=== PATIENT | male | born 1975 | race African-American/Black ===

== ENCOUNTER 2017-06-18 14:29 | Observation (INO) ==
[2017-06-18] MEDS ORDERED: ASPIRIN 81 MG CHEWABLE TABLET PO ONE (14:32)
[2017-06-18] MEDS ORDERED: SALINE FLUSH 10ml SYRINGE IVF PRN (14:32)
--- NOTE | 2017-06-18 14:34 | Emergency Department Report ---
Chest Pain HPI - General Stated Complaint: cp Time Seen by Provider: 06/18/17 14:33 Source: patient Mode of arrival: ambulatory Limitations: no limitations - History of Present Illness HPI narrative: Patient is a 41-year-old male presents emergency room for evaluation of chest pain. Patient last night developed several episodes of "shocklike" feeling in his chest, this morning patient started having chest pressure at rest. Patient' s had mild nausea no vomiting no fevers no chills no diaphoresis. Patient decided today to present to the ER for evaluation MD complaint: chest pain Occurred At: home Onset (ago): hour(s) Duration: constant Onset: during rest Pain location: substernal, left chest Severity: moderate Severity scale (1-10): 7 Quality: tightness, heaviness Relieving factors: nothing Aspirin Today: 81 mg x 4, provided by ED Nitro Today: 0.4 mg x 3, provided by ED, mild relief - Related Data Home Medications Medication Instructions Recorded Confirmed Amlodipine [Norvasc] 10 mg PO DAILY 06/18/17 06/18/17 Atorvastatin Calcium 20 mg PO HS 06/18/17 06/18/17 Benzalkonium Chloride [Revitaderm] 1 applic TOP PRN 06/18/17 06/18/17 Canagliflozin [Invokana] 300 mg PO DAILY 06/18/17 06/18/17 Cyclobenzaprine [Flexeril] 5 mg PO PRN 06/18/17 06/18/17 Insulin Aspart [Novolog Flexpen] 10 - 20 unit SQ TIDWM 06/18/17 06/18/17 Insulin Detemir [Levemir Flextouch] 40 unit SQ BID 06/18/17 06/18/17 LORazepam [Ativan] 0.5 mg PO BID 06/18/17 06/18/17 Venlafaxine HCl [Venlafaxine HCl 75 mg PO DAILY 06/18/17 06/18/17 ER] Venlafaxine HCl [Venlafaxine HCl 150 mg PO DAILY 06/18/17 06/18/17 ER] Previous Rx's Medication Instructions Recorded Acetaminophen [Tylenol] 500 mg PO Q4H tablet 06/19/17 Aspirin Chewable [ASA] 81 mg PO DAILY #30 tab.chew 06/19/17 Nitroglycerin 0.4 mg SL Q5MIN3 #30 tab.subl 06/19/17 Allergies Allergy/AdvReac Type Severity Reaction Status Date / Time codeine Allergy Unknown Rash Verified 06/18/17 14:44 Review of Systems Constitutional: Denies: fever, chills ENT: Denies: ear pain, throat pain Cardiovascular: Reports: chest pain. Denies: palpitations, dyspnea on exertion Respiratory: Denies: cough, dyspnea, wheezes Gastrointestinal: Denies: abdominal pain, nausea, vomiting Genitourinary: Denies: dysuria, frequency Neurological: Denies: headache, weakness, numbness Psychiatric: Denies: anxiety, depression Endocrine: Denies: fatigue, heat or cold intolerance PFSH Patient Stated Medical History Migraine Yes Transient Ischemic Attacks ( Yes: x3 TIA) Hypertension Yes Myocardial Infarction Yes: 2-3 Bronchitis Yes Diabetes Mellitus Type 2 Yes Gastroesophageal Reflux Yes Disease Other GI Yes: GI INFECTIONS Hx Kidney Stones Yes Other Musculoskeletal Yes: FEMUR R X2,R TIBIA, LEFT TIBIA, WRISTS Depression Yes - Social History Smoking status: Never smoker Substance use type: does not use Physical Exam - Eye Eye exam: Present: normal appearance - ENT ENT exam: Present: normal oropharynx, mucous membranes moist - Neck Neck exam: Present: full ROM, trachea midline - Chest Chest inspection: Present: symmetric chest wall rise. Absent: tenderness, rash - Respiratory Respiratory exam: Present: normal lung sounds bilaterally. Absent: respiratory distress, wheezes, stridor - Cardiovascular Cardiovascular exam: Present: regular rate, normal rhythm, normal heart sounds - Abdominal Exam Abdominal exam: Present: soft, normal bowel sounds. Absent: distention, tenderness - Skin Skin exam: Present: warm, dry - Neurological Exam Neurological exam: Present: alert, oriented X3 - Psychiatric Psychiatric exam: Present: normal affect, normal mood Course Vital Signs Temperature 99.0 F 06/18/17 14:30 Pulse Rate 102 H 06/18/17 14:30 Respiratory Rate 20 06/18/17 14:30 Blood Pressure 137/97 H 06/18/17 14:30 Pulse Oximetry 97 06/18/17 14:30 Temperature 98.4 F 06/19/17 11:38 Pulse Rate 90 06/19/17 11:38 Respiratory Rate 16 06/19/17 11:38 Blood Pressure 116/70 06/19/17 11:38 Pulse Oximetry 96 06/19/17 11:38 Chest Pain - Differential Diagnosis Likely: fracture of rib, pneumothorax, stable angina, unstable angina pectoris, atypical chest pain, st elevation myocardial infarction, costochondritis, chest pain, biliary colic - Medical Records Data Attestation: I reviewed the patient's medical records. - Lab Data Attestation: I reviewed the patient's lab results. Result diagrams: 06/18/17 14:43 06/18/17 14:43 Lab Results 06/18/17 06/18/17 06/18/17 Range/Units 14:43 14:43 14:43 WBC 10.7 (4.5-11.0) T/MM3 RBC 5.56 (4.50-5.90) M/MM3 Hgb 16.4 (13.5-17.5) GM/DL Hct 49.3 (41-53) % MCV 88.7 (80-100) UM3 MCH 29.5 (26-34) UUG MCHC 33.3 (31-37) GM/DL RDW Std Deviation 43.0 (36.9-50.2) FL Plt Count 201 (130-400) T/MM3 MPV 9.6 (9.4-12.4) UM3 Immature Gran % (Auto) 0.2 (0.0-0.5) % Neut % (Auto) 55.4 (33-66) % Lymph % (Auto) 38.2 (23-45) % [place] % (Auto) 4.3 (0-9.0) % Eos % (Auto) 1.7 (0-4) % Baso % (Auto) 0.2 (0-2) % Neut # 6.0 (1.8-7.7) T/MM3 Lymph # 4.1 (1-4.8) T/MM3 [place] # 0.5 (0-0.8) T/MM3 Eos # 0.2 (0-0.5) T/MM3 Baso # 0.0 (0-0.2) T/MM3 Abs Immat Gran (auto) 0.02 (0.00-0.03) T/MM3 D-Dimer < 150 (0-230) NG/ML Turbidity < 20 (0-20) Sodium 144 (134-144) MEQ/L Potassium 4.4 (3.6-5) MEQ/L Chloride 106 (98-107) MEQ/L Carbon Dioxide 26 (22-30) MEQ/L Anion Gap 12 (5-15) MEQ/L BUN 10.0 (9-20) MG/DL Creatinine 0.6 L (0.8-1.5) MG/DL GFR Calculation 148 BUN/Creatinine Ratio 17 (6-26) RATIO Glucose 136 H (75-110) MG/DL Calculated Osmolality 278 (261-280) MOSM/KG Calcium 9.9 (8.4-10.2) MG/DL Magnesium 2.1 (1.6-2.3) MG/DL Total Bilirubin 0.60 (0.20-1.30) MG/DL Icterus Index < 2 (0-7) AST 21 (17-59) U/L ALT 34 (21-72) U/L Alkaline Phosphatase 66 (38-126) U/L Troponin I < 0.012 (0-0.12) ng/ml Total Protein 8.1 (6.3-8.2) G/DL Albumin 4.6 (3.5-5.0) G/DL Globulin 3.5 (2.4-3.6) G/DL Albumin/Globulin Ratio 1.3 (1.1-2.2) RATIO TSH 0.74 (0.47-4.68) MIU/L Specimen Hemolysis < 15 (0-25) - Radiology Data Attestation: I reviewed the patient's radiology results. No acute cardiopulmonary findings - EKG Data EKG #1 EKG attestation: Yes: I reviewed and interpreted this EKG. Rate: tachycardia Rhythm: NSR [place]/QRS: normal Interpretation: no acute changes Disposition Clinical Impression: Chest pain Disposition: 02 To [facility] Condition: Stable Time of Disposition: 15:51 - Seen By: physician
--- OUTSIDE RECORDS SUMMARY | 2017-06-18 14:39 | External Medical Summary | Clinical Summary ---
:1975 Author Organization [facility] Address [address] [place] [address] Phone Care Team Providers Name Role Phone Unavailable Primary Care Provider Unavailable Source Comments Some departments are not documenting in the electronic medical record. If you do not see the information that you expected, contact Release of Information in the Health Information Management department at [phone] for further assistance in locating additional records.[facility] Allergies Active Allergy Reactions Severity Noted Date Comments Codeine CHEST TIGHTNESS, RASH 06/28/2014 Current Medications Prescription Sig. Disp. Refills Start Date End Date Status canagliflozin (INVOKANA) Take 300 mg by Active 300 mg tablet mouth daily with breakfast. insulin glargine (LANTUS Inject 38 Units Active SOLOSTAR) 100 unit/mL (3 into area(s) as mL) injection PEN directed at bedtime daily. insulin aspart (NOVOLOG) Inject 15 Units Active 100 unit/mL injection into area(s) as directed three times daily with meals. If over 150 gabapentin (NEURONTIN) Take 300 mg by Active 300 mg capsule mouth daily. nebivolol (BYSTOLIC) 5 Take 5 mg by mouth Active mg tablet daily. amphetamine-dextroamphet Take 30 mg by Active amine(+) (ADDERALL) 30 mouth twice daily mg tablet lovastatin(+) (MEVACOR) Take 10 mg by Active 10 mg tablet mouth at bedtime daily. potassium chloride(+) Take 10 mEq by Active (MICRO-K) 10 mEq capsule mouth daily. colesevelam(+) (WELCHOL) Take 3 Tabs by 180 Tab 3 10/25/2014 Active 625 mg tablet mouth twice daily with meals. Active Problems Problem Noted Date Diarrhea 07/19/2014 Social History Tobacco Use Types Packs/Day Years Used Date Current Every Day Smoker 1 Alcohol Use Drinks/Week oz/Week Comments Yes rarely Sex Assigned at Date Recorded Not on file Last Filed Vital Signs Vital Sign Reading Time Taken Blood Pressure 134/88 10/25/2014 2:39 PM [employer] Pulse 99 10/25/2014 2:39 PM [employer] Temperature 37.1 C (98.7 F) 10/25/2014 2:39 PM [employer] Respiratory Rate 18 10/25/2014 2:39 PM [employer] Oxygen Saturation - - Inhaled Oxygen Concentration - - Weight 122.5 kg (270 lb) 10/25/2014 2:39 PM [employer] Height 180.3 cm (5' 11") 10/25/2014 2:39 PM [employer] Body Mass Index 37.66 10/25/2014 2:39 PM [employer] SAL[employer] Plan of Treatment Health Maintenance Due Date Last Done Comments PHYSICAL (COMPREHENSIVE) EXAM 1982 PERTUSSIS VACCINE 1986 TETANUS VACCINE 1992 INFLUENZA VACCINE 06/20/2017
[2017-06-18] MEDS: NITROGLYCERIN 0.4 MG SUBLINGUAL TABLET SL PRN ×3 (14:42→15:04)
--- NOTE | 2017-06-18 14:54 | XRay Report ---
Indication: chest pain shortness of air PROCEDURE: XR chest 1V: Encounter: Initial Comparison: None FINDINGS: The lungs are clear. There is no abnormal airspace opacity, pleural effusion or pneumothorax identified. The heart size, pulmonary vasculature and mediastinum are within normal limits. No significant skeletal abnormality is seen. IMPRESSION: No acute cardiopulmonary abnormality. .
[2017-06-18] MEDS ORDERED: MORPHINE SULFATE 2 MG SYRINGE IVP ONE ×2 (15:13→15:51)
[2017-06-18 16:28] VITALS: BMI 38.7
[2017-06-18] MEDS ORDERED: ONDANSETRON 4 MG/2 ML INJECTION IVP PRN (16:58)
[2017-06-18] MEDS ORDERED: MORPHINE SULFATE 4 MG SYRINGE IVP PRN (16:58)
[2017-06-18] MEDS ORDERED: DiphenhydrAMINE 25 MG CAPSULE PO PRN (16:59)
--- NOTE | 2017-06-18 17:12 | History & Physical Report ---
<Loreta Davis V - Last Filed: 06/18/17 17:27> History of Present Illness Date: 06/18/17 Chief complaint: Chest pain HPI: Sloan is a pleasant 41 year old female who has been under the outpatient care of the wound care center for debridement of a right 2nd toe plantar ulcer for the past 1 month. Today he was there having a final evaluation on his wound and he told staff he had been having chest pain all day. At that time he was brought to the emergency room for acute evaluation. Further evaluation including laboratory studies, EKG and chest x-ray were obtained. EKG revealed sinus tachycardia, rate 103. CBC and CMP were found to be unremarkable. Initial troponin was negative. TSH is 0.74, and d-dimer negative. Chest x-ray not reveal any acute cardiopulmonary findings. His chest pain initially was a 6 out of 10 and decreased down to a 2 out of 10 following nitroglycerin and morphine. Patient does have existing comorbidities including diabetes, hypertension, every day smoker. The hospitalist services were contacted and accepted patient for outpatient admission for further observation and evaluation. 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 He reports that he does take Adderall for his ADHD, however, only utilizes it on days of work. He reports he has a long-standing history of chronic insomnia and night terrors. He has had cardiac evaluation in the past. He reports that in the summer 2015. He was hospitalized at [facility] and underwent a stress test and echocardiogram at that time. He was told that it was "okay". No interventions were performed. Chest pain. Today is sharp in nature to the left anterior chest and substernal. It appears to be worse with palpation and is reproducible on examination. Pain was accompanied with mild nausea that has now resolved. Patient has a known history of type II diabetes in his under the outpatient care of the wound Center for a right 2nd toe wound ulcer that has now healed. She reports that his last hemoglobin A1c was 2-3 months ago. At that time it was just over 8. He reports that he is not good about taking mealtime insulin as his food intake during the day varies depending on his dizziness. He does routinely take Levemir 40 units twice a day as well as Invokana for glycemic control. Review of Systems Comprehensive ROS: completed and no additional positive findings except those as stated - Cardiovascular Cardiovascular: Present: chest pain [facility] Patient Stated Medical History Type II diabetes Recent right 2nd toe ulcer- Now resolved Hypertension GERD Depression/anxiety ADHD History of multiple musculoskeletal fractures including right femur, right tib- fib and wrists. Reported history of NE without intervention History of TIA History of C. difficile Chronic tobacco dependence Surgical History: Appendectomy. Cholecystectomy. Right femur repair. 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 Medications Home Medications Medication Instructions Recorded Confirmed Type Amlodipine [Norvasc] 10 mg PO DAILY 06/18/17 06/18/17 History Atorvastatin Calcium [Atorvastatin 20 mg PO HS 06/18/17 06/18/17 History Calcium] Benzalkonium Chloride [Revitaderm] 1 applic TOP PRN 06/18/17 06/18/17 History Canagliflozin [Invokana] 300 mg PO DAILY 06/18/17 06/18/17 History Cyclobenzaprine [Flexeril] 5 mg PO PRN 06/18/17 06/18/17 History Dextroamphetamine/Amphetamine 30 mg PO DAILY 06/18/17 06/18/17 History [Adderall Xr 30 mg Capsule] Insulin Aspart [Novolog Flexpen] 10 - 20 unit SQ TIDWM 06/18/17 06/18/17 History Insulin Detemir [Levemir Flextouch] 40 unit SQ BID 06/18/17 06/18/17 History LORazepam [Ativan] 0.5 mg PO BID 06/18/17 06/18/17 History Venlafaxine HCl [Venlafaxine HCl 75 mg PO DAILY 06/18/17 06/18/17 History ER] Venlafaxine HCl [Venlafaxine HCl 150 mg PO DAILY 06/18/17 06/18/17 History ER] Allergies Allergy/AdvReac Type Severity Reaction Status Date / Time codeine Allergy Unknown Rash Verified 06/18/17 14:44 Exam Vital Signs: Temperature 98.9 F 06/18/17 16:37 Pulse Rate 89 06/18/17 16:37 Respiratory Rate 16 06/18/17 16:37 Blood Pressure 123/77 06/18/17 16:37 Pulse Oximetry 96 06/18/17 16:37 Telemetry Rhythm: Sinus Rhythm Height/Weight/BMI: Height 1.8 m Weight 126 kg Body Mass Index 38.7 - Constitutional Present: no acute distress, well nourished, well developed - Routine HEENT Exam Head: Present: normocephalic Eye: Present: EOMI, PERRL ENT: Present: mucous membranes moist, dentition normal - Routine Neck Exam Present: full ROM - Routine Respiratory Exam Present: CTA bilaterally. Absent: wheezes - Routine Cardiovascular Exam Present: RRR, S1, S2, no murmur. Absent: murmur - Routine Abdominal Exam Present: soft, normoactive bowel sounds, non distended. Absent: tenderness - Routine Extremities Exam Present: full ROM, normal capillary refill - Routine Skin Exam Present: intact, dry, warm Comments: Mild scaling of skin at [place] aspect crease of the right 2nd toe. No evidence of acute infection, erythema or drainage. - Routine Neurological Exam Present: alert, oriented X3, CN II-XII intact - Routine Psychiatric Exam Present: normal affect Results - Labs CBC & Chem 7: 06/18/17 14:43 06/18/17 14:43 Assessment and Plan (1) Chest pain, rule out acute myocardial infarction Current visit: Yes Status: Acute DVT Prophylaxis: SCD's Resuscitation Status: Full Code Assessment and Plan: Impression Chest pain rule out NE Type II diabetes Hypertension GERD Reported history of NE Anxiety ADHD Plan Admit patient to outpatient observation under care of Dr. Diamond for chest pain rule out NE. Will monitor patient on cardiac telemetry, obtain serial troponin 3 to rule out ischemia. Consult placed to Dr. Mead for further cardiac evaluation and recommendations. HEART score= 3 points indicating low risk of adverse cardiac event Have asked nursing staff to obtain old records from [facility]. Patient did have cardiac workup including stress test in the summer of 2015. Morphine available as needed for pain control. Will monitor Accu-Cheks and continue with home insulin, Levemir 40 units a day as well as NovoLog with meals and oral Invokana. Encourage tobacco cessation. Medications reviewed and ordered SCDs to bilateral lower extremity for DVT prophylaxis Discuss further orders and plan of care with attending, Dr. Diamond. At time of discharge medical care will return to primary care provider in [place], [place], Dr. Yulissa Reilly Sepsis Assessment - Evaluation Sepsis screening result: No Definite Risk Hospital Course Summary Disclaimer: The visit summary below is not to be considered part of the above Progress Note. Hospital Course: 06/18/17- initial admission Chest pain rule out NE Type II diabetes Hypertension GERD Reported history of NE Anxiety ADHD Plan Admit patient to outpatient observation under care of Dr. Diamond for chest pain rule out NE. Will monitor patient on cardiac telemetry, obtain serial troponin 3 to rule out ischemia. Consult placed to Dr. Mead for further cardiac evaluation and recommendations. HEART score= 3 points indicating low risk of adverse cardiac event Have asked nursing staff to obtain old records from [facility]. Patient did have cardiac workup including stress test in the summer of 2015. Morphine available as needed for pain control. Will monitor Accu-Cheks and continue with home insulin, Levemir 40 units a day as well as NovoLog with meals and oral Invokana. Encourage tobacco cessation. Medications reviewed and ordered SCDs to bilateral lower extremity for DVT prophylaxis Discuss further orders and plan of care with attending, Dr. Diamond. At time of discharge medical care will return to primary care provider in [place], [place], Dr. Yulissa Reilly <LoboCallie - Last Filed: 06/18/17 18:22> History of Present Illness Date: 06/18/17 [facility] Patient Stated Medical History Migraine Yes Transient Ischemic Attacks ( Yes: x3 TIA) Hypertension Yes Myocardial Infarction Yes: 2-3 Bronchitis Yes Diabetes Mellitus Type 2 Yes Gastroesophageal Reflux Yes Disease Other GI Yes: GI INFECTIONS Hx Kidney Stones Yes Other Musculoskeletal Yes: FEMUR R X2,R TIBIA, LEFT TIBIA, WRISTS Cellulitis Yes Clostridium Difficile Yes Depression Yes Exam Vital Signs: Temperature 98.9 F 06/18/17 16:37 Pulse Rate 84 06/18/17 17:01 Respiratory Rate 16 06/18/17 16:37 Blood Pressure 123/77 06/18/17 16:37 Pulse Oximetry 96 06/18/17 16:37 Height/Weight/BMI: Height 1.8 m Weight 126 kg Body Mass Index 38.7 Results - Labs CBC & Chem 7: 06/18/17 14:43 06/18/17 14:43 Assessment and Plan (1) Chest pain, rule out acute myocardial infarction Current visit: Yes Status: Acute Assessment and Plan: 06/18/2017-I reviewed this chart, the patient history, and the [employer]PER[employer]'s/PA's documented findings as above. We discussed and formulated the assessment and plan as above with the additions below.-Dr. Diamond Patient was seen in his room accompanied by his . He states his is his DPOA. Patient states that he had some electrical type short lasting chest pains yesterday but this morning developed more of a pressure like something sitting on his chest. When he notified his physician at the wound center, she referred him to the ER. In the ER he received nitroglycerin and morphine and now he has very minimal discomfort in his chest. The pain is substernal. He does have pain with palpation of the chest but it is not reproducing the same type of discomfort he had previously. He denies any shortness of breath. He had some mild nausea but no vomiting. He is hungry at this time and complains of a headache which he thinks is from nitroglycerin. The patient states he had a stress test a year ago in [place] which was normal. We did receive those records and it appears he was only able to walk for 1.5 minutes and attained an 81% maximal heart rate. He was limited by dyspnea and hip pain. Stress test was reportedly negative. He had carotid Dopplers in 2008 which were negative, an MRA of the neck in September 2014 that was negative, and MRI of the brain in September 2014 was negative. On exam he is alert and oriented 3 and in no acute distress. Chest is clear to auscultation. Cardiovascular reveals a regular rate and rhythm. Abdomen is soft and nontender. Extremities are free of edema. Skin is warm and dry and without rashes. Lab Reveals a normal CBC. D-dimer less than 150. Comprehensive metabolic almost entirely normal. Magnesium is 2.1. TSH is 0.74. The globe A1c is pending. Chest x-ray appears normal. EKG reveals no specific ST-T wave changes. Impression Chest pain rule out acute NE. Risk factors include diabetes, hypertension, hyperlipidemia, tobacco use, history of TIA, and hospital history of NE in the past. Family is unknown because the patient is adopted. Type 2 diabetes Hypertension Headache-likely secondary to nitroglycerin Plan Serial cardiac enzymes. Aspirin daily. Telemetry. Dr. Mead has been consulted. We'll monitor Accu-Cheks and place on a diabetic diet. Discussed plans with the patient and he is in agreement. Hospital Course Summary Disclaimer: The visit summary below is not to be considered part of the above Progress Note.
[2017-06-18] MEDS ORDERED: CYCLOBENZAPRINE 5 MG TABLET PO PRN (17:15)
[2017-06-18] MEDS ORDERED: INSULIN ASPART 100unit/ml INJECTION SQ SCH (17:30)
[2017-06-18] MEDS ORDERED: IBUPROFEN 600 MG TABLET PO PRN (17:42)
[2017-06-18] MEDS ORDERED: LORazepam 0.5 MG TABLET PO PRN (17:43)
[2017-06-18] MEDS: ACETAMINOPHEN 500 MG TABLET PO SCH ×2 (17:51→21:52)
[2017-06-18] MEDS ORDERED: INSULIN DETEMIR 100unit/ml INJECTION SQ SCH (21:00)
[2017-06-18] MEDS ORDERED: ATORVASTATIN 20 MG TABLET PO SCH (21:00)
[2017-06-18] MEDS: LORazepam 0.5 MG TABLET PO SCH (21:51)
--- NOTE | 2017-06-18 22:06 | Cardiology Consult Note ---
History of Present Illness Consult date: 06/18/17 Requesting physician: Callie Diamond Consult reason: chest pain History of present illness: pt interviewed and examined 41 yo aam admitted w L chest pressure . partially improved after 3 SL NTG from 7 to 3-4/10.initially presented to wound clinic. has been working very long hours.wants to get out of the hospital "the most expedient way" cp reproducible. feeling better . previous w/u in [facility]. last yr including an echo and a stress test. Mr. Castelan presented today at the outpatient care of the wound Center for debridement he told him that he has been having chest pain all day long so admitted to hospitalist service through the emergency room for acute evaluation and initial low workup EKG chest x-ray troponins and laboratory were unremarkable is a chest pain was rated as 7/10 and dropped to 34/10 after 3 sublingual nitros and morphine. He's been having a headache since. Was still having ongoing chest pain when I examined him was reproducible by palpation. It was uncomfortable in his back jony and bed. He has a lot of risk factors as noted below. 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 He does not exercise. Last time he mowed his lawn was 2 weeks ago with 45 minutes and this did not give him any chest pain or dyspnea. His had previous admission with a similar problem in summer 2016 [facility] where underwent stress test and an echo that were reportedly unremarkable . Denies any radiation of this chest pain has had mild nausea denies dyspnea otherwise denies any relieving or worsening factors. He is not compliant with his diabetic treatment , as his meal intake varies. During my exam he was still having very low grade ongoing chest wall tenderness. Review of Systems Comprehensive ROS: completed and no additional positive findings except those as stated Review of systems: Comparison review of system is negative except as in history of present illness he is ADHD and depression anxiety and has been taking multiple medications for that. - Cardiovascular Cardiovascular: Absent: orthopnea, edema - Respiratory Respiratory: Absent: dyspnea PFSH Patient Stated Medical History Migraine Yes Transient Ischemic Attacks ( Yes: x3 TIA) Hypertension Yes Myocardial Infarction Yes: 2-3 Bronchitis Yes Diabetes Mellitus Type 2 Yes Gastroesophageal Reflux Yes Disease Other GI Yes: GI INFECTIONS Hx Kidney Stones Yes Other Musculoskeletal Yes: FEMUR R X2,R TIBIA, LEFT TIBIA, WRISTS Cellulitis Yes Clostridium Difficile Yes Depression Yes Surgical History: Appendectomy. Cholecystectomy. Right femur repair. EGD and colonoscopy Family History Updates: Not provided - Social History Smoking status: Current every day smoker Alcohol intake frequency: a few times a week Household members: significant other Current occupational status: employed Current residence: Apartment/Private Home Medications Home Medications Medication Instructions Recorded Confirmed Type Amlodipine [Norvasc] 10 mg PO DAILY 06/18/17 06/18/17 History Atorvastatin Calcium 20 mg PO HS 06/18/17 06/18/17 History Benzalkonium Chloride [Revitaderm] 1 applic TOP PRN 06/18/17 06/18/17 History Canagliflozin [Invokana] 300 mg PO DAILY 06/18/17 06/18/17 History Cyclobenzaprine [Flexeril] 5 mg PO PRN 06/18/17 06/18/17 History Insulin Aspart [Novolog Flexpen] 10 - 20 unit SQ TIDWM 06/18/17 06/18/17 History Insulin Detemir [Levemir Flextouch] 40 unit SQ BID 06/18/17 06/18/17 History LORazepam [Ativan] 0.5 mg PO BID 06/18/17 06/18/17 History Venlafaxine HCl [Venlafaxine HCl 75 mg PO DAILY 06/18/17 06/18/17 History ER] Venlafaxine HCl [Venlafaxine HCl 150 mg PO DAILY 06/18/17 06/18/17 History ER] Allergies Allergy/AdvReac Type Severity Reaction Status Date / Time codeine Allergy Unknown Rash Verified 06/18/17 14:44 Exam Vital signs: Temperature 98.9 F 06/18/17 16:37 Pulse Rate 84 06/18/17 17:01 Respiratory Rate 16 06/18/17 16:37 Blood Pressure 123/77 06/18/17 16:37 Pulse Oximetry 96 06/18/17 16:37 - Constitutional no acute distress, obese - Routine HEENT Exam Head: Present: normocephalic, atraumatic Eye: Present: EOMI ENT: Present: mucous membranes moist - Routine Neck Exam Absent: JVD - Routine Respiratory Exam Present: CTA bilaterally - Routine Cardiovascular Exam Present: RRR, S1, S2, no murmur, S4. Absent: JVD - Routine Abdominal Exam Present: soft, normoactive bowel sounds, non distended, non tender - Routine Extremities Exam Absent: cyanosis, clubbing, edema - Routine Skin Exam Present: intact, dry, warm. Absent: cyanosis, erythema, pallor, mottling - Routine Neurological Exam Present: alert, oriented X3, CN II-XII intact, moving all extremities. Absent: motor deficit - Routine Psychiatric Exam Present: cooperative, depressed, anxious Results 06/18/17 14:43 06/18/17 14:43 Cardiac Enzymes 06/18/17 Range/Units 20:34 Troponin I < 0.012 (0-0.12) ng/ml Intake and Output 06/18/17 06/18/17 06/18/17 06:59 14:59 22:59 Other: # Voids 1 Weight 126 kg Patient Weight 06/19/17 06:59 Weight 126 kg - Imaging and Cardiology Stress echo: other ( [facility] 04/15/2016 exercise stress EKG (is no echo) exercise duration 6 minutes and 50 seconds 7 Mets target heart rate 153 which is 81% of maximum predicted double product 25,550 negative for ischemia) Echo: other (reportedly negative . A carotid Doppler report shows no obstructive disease) - EKG Interpretation EKG: sinus rhythm (no acute changes of ischemia) EKG interpretations - Dysrhythmias Sinus rhythms and dysrhythmias: sinus rhythm (no acute changes) Hospital Course Summary Disclaimer: The visit summary below is not to be considered part of the above Progress Note. Hospital Course: 06/18/17- initial admission Chest pain rule out GA Type II diabetes Hypertension GERD Reported history of GA Anxiety ADHD CP DM 2 SMOKER HTN DYSLIPIDEMIA APPEARS STABLE CONCUR W RX AND R/O GA DISCUSSING FURTHER W/U. Exercise stress nuclear scan versus heart catheter ,considering his risk factors. I explained the plan to the patient we will keep him nothing by mouth after breakfast for cardiac testing tomorrow afternoon. Going to hold his morning insulin. Obtain EKG in the morning 2 serial troponin Continue aspirin and statin Beta blockers may exacerbate his depression especially this is really not feeling well. Will await substantiating the diagnosis of his chest pain . THANK YOU 06/18/17 22:11 06/19/17 17:17 06/19/17 17:19 06/19/17 17:21 Sepsis Assessment - Evaluation Sepsis screening result: No Definite Risk
[2017-06-19] MEDS: ACETAMINOPHEN 500 MG TABLET PO SCH ×3 (02:08→10:02)
[2017-06-19 07:40] VITALS: RESP 16
[2017-06-19] MEDS ORDERED: ASPIRIN 325 MG TABLET PO ONE (08:00)
[2017-06-19] MEDS: LORazepam 0.5 MG TABLET PO SCH (08:16)
[2017-06-19] MEDS ORDERED: AMLODIPINE 10 MG TABLET PO SCH (09:00)
[2017-06-19] MEDS ORDERED: CANAGLIFLOZIN 100mg TABLET PO SCH (09:00)
[2017-06-19] MEDS ORDERED: Venlaflaxine XR 75 MG CAPSULE (24hr) PO SCH (09:00)
--- NOTE | 2017-06-19 09:47 | Progress Note ---
<Loreta Davis V - Last Filed: 06/19/17 09:43> Subjective: Sloan is seen this morning in follow-up. He is resting in bed without any chest pain currently. States that he feels mildly anxious, however, did receive his Ativan this morning. Denies nausea, dizziness or shortness of breath. Vital Signs are stable, pulse 70-80, blood pressure this morning 111/62. Objective Vital signs: Temperature 98.2 F 06/19/17 07:38 Pulse Rate 81 06/19/17 07:38 Respiratory Rate 16 06/19/17 07:38 Blood Pressure 111/62 06/19/17 07:38 Pulse Oximetry 93 06/19/17 07:38 Rhythm: Normal Sinus Rhythm Height/Weight/BMI: Height 1.8 m Weight 124 kg Body Mass Index 38.7 - Constitutional Present: no acute distress, well nourished, well developed - Routine HEENT Exam Eye: Present: EOMI, PERRL ENT: Present: mucous membranes moist, dentition normal - Routine Respiratory Exam Present: CTA bilaterally. Absent: wheezes - Routine Cardiovascular Exam Present: RRR, S1, S2. Absent: murmur - Routine Abdominal Exam Present: soft, normoactive bowel sounds, non distended. Absent: tenderness - Routine Extremities Exam Present: full ROM, normal capillary refill - Routine Back/Spine/Pelvis Exam Back/Spine: Present: full ROM - Routine Skin Exam Present: intact, dry, warm - Routine Neurological Exam Present: alert, oriented X3, CN II-XII intact - Routine Lymphatic Exam Lymphatic: Absent: adenopathy - Routine Psychiatric Exam Present: normal affect, normal thought process Results - Labs CBC & Chem 7: 06/18/17 14:43 06/18/17 14:43 Assessment and Plan (1) Chest pain, rule out acute myocardial infarction Status: Acute Assessment and Plan: Impression Chest pain rule out ND Type II diabetes Hypertension GERD Reported history of ND Anxiety ADHD Plan Telemetry reviewed in NSR. His morning. Patient denies chest pain. On examination. Appreciate Dr. Mead consultation. Awaiting to hear his recommendations for further cardiac evaluation. Continue Need to monitor Accu-Cheks. Fasting sugar this morning was 106. Hemoglobin A1c 8.0. DM meds currently on hold for possible procedure. Sepsis Assessment - Evaluation Sepsis screening result: No Definite Risk Hospital Course Summary Disclaimer: The visit summary below is not to be considered part of the above Progress Note. Hospital Course: 06/18/17- initial admission Chest pain rule out ND Type II diabetes Hypertension GERD Reported history of ND Anxiety ADHD Plan Admit patient to outpatient observation under care of Dr. Diamond for chest pain rule out ND. Will monitor patient on cardiac telemetry, obtain serial troponin 3 to rule out ischemia. Consult placed to Dr. Mead for further cardiac evaluation and recommendations. HEART score= 3 points indicating low risk of adverse cardiac event Have asked nursing staff to obtain old records from [facility]. Patient did have cardiac workup including stress test in the summer of 2015. Morphine available as needed for pain control. Will monitor Accu-Cheks and continue with home insulin, Levemir 40 units a day as well as NovoLog with meals and oral Invokana. Encourage tobacco cessation. Medications reviewed and ordered SCDs to bilateral lower extremity for DVT prophylaxis Discuss further orders and plan of care with attending, Dr. Diamond. At time of discharge medical care will return to primary care provider in [place], [place], Dr. Yulissa Reilly 06/18/17 22:04 CP DM 2 SMOKER APPEARS STABLE CONCUR W RX AND R/O ND DISCUSSING FURTHER W/U. THANK YOU 06/18/17 22:11 <Callie Diamond - Last Filed: 06/19/17 16:54> Objective Vital signs: Temperature 98.4 F 06/19/17 11:38 Pulse Rate 90 06/19/17 11:38 Respiratory Rate 16 06/19/17 11:38 Blood Pressure 116/70 06/19/17 11:38 Pulse Oximetry 96 06/19/17 11:38 Height/Weight/BMI: Height 1.8 m Weight 124 kg Body Mass Index 38.7 Results - Labs CBC & Chem 7: 06/18/17 14:43 06/18/17 14:43 Assessment and Plan (1) Chest pain, rule out acute myocardial infarction Status: Acute Assessment and Plan: 06/19/2017-I reviewed this chart, the patient history, and the ASSISTANCE SPECIALIST's/PA's documented findings as above. We discussed and formulated the assessment and plan as above with the additions below.-Dr. Diamond Patient is doing well today and we have planned for discharge. Please see my note under discharge summary. Hospital Course Summary Disclaimer: The visit summary below is not to be considered part of the above Progress Note.
[2017-06-19 11:39] VITALS: BP 116/70; PULSE 90; TEMP 98.4; O2SAT 96
--- NOTE | 2017-06-19 14:43 | Discharge Instructions ---
Discharge Plan - Med Rec/Dispo Referrals/Follow Up: Ken Mead MD [Physician] - (Follow up for nuclear stress test next week and follow up with Dr Mead as instructed. ) Prescriptions: New Aspirin Chewable [ASA] 81 mg PO DAILY #30 tab.chew Nitroglycerin 0.4 mg SL Q5MIN3 #30 tab.subl Acetaminophen [Tylenol] 500 mg PO Q4H tablet Continue Cyclobenzaprine [Flexeril] 5 mg PO PRN Insulin Aspart [Novolog Flexpen] 10 - 20 unit SQ TIDWM Venlafaxine HCl [Venlafaxine HCl ER] 75 mg PO DAILY Venlafaxine HCl [Venlafaxine HCl ER] 150 mg PO DAILY Amlodipine [Norvasc] 10 mg PO DAILY Atorvastatin Calcium 20 mg PO HS Insulin Detemir [Levemir Flextouch] 40 unit SQ BID LORazepam [Ativan] 0.5 mg PO BID Canagliflozin [Invokana] 300 mg PO DAILY Benzalkonium Chloride [Revitaderm] 1 applic TOP PRN Discontinued Dextroamphetamine/Amphetamine [Adderall Xr 30 mg Capsule] 30 mg PO DAILY Discharge Instructions/Outpatient Orders: Final Provider Discharge Instructions Location: Determined By Patient - Disposition 01 Discharged Home, Self-Care
--- NOTE | 2017-06-19 14:58 | Discharge Summary ---
Discharge Information Date of admission: 06/18/17 15:49 <Callie Diamond - 06/19/17 16:51> 06/18/17 15:49 <RyanLoreta V - 06/19/17 14:59> Anticipated date of discharge: 06/19/17 <RyanLoreta V - 06/19/17 14:59> Attending Physician: Callie Diamond MD <Callie Diamond - 06/19/17 16:51> Callie Diamond MD <Loreta Davis V - 06/19/17 14:59> Primary care physician: Yulissa Reilly MD <Callie Diamond - 06/19/17 16:51> Yulissa Reilly MD <Loreta Davis V - 06/19/17 14:59> Consults: 06/18/17 17:02 Physician Consult [CONS] Routine Consulting Provider: Ken Mead Reason For Exam: chest pain Ordering Provider has Notified Metal Or Wood Blocker: Yes <Callie Diamond - 06/19/17 16:51> 06/18/17 17:02 Physician Consult [CONS] Routine Consulting Provider: Ken Mead Reason For Exam: chest pain Ordering Provider has Notified Metal Or Wood Blocker: Yes <[place]villeLoreta V - 06/19/17 14:59> - Discharge Diagnosis Discharge Diagnosis: Chest pain- Resolved <Loreta Davis Genoveva - 06/19/17 14:59> - Procedures Procedures: None <Loreta Davis Genoveva - 06/19/17 14:59> - Laboratory Labs: Laboratory Results - last 72 hr 06/18/17 06/18/17 06/18/17 14:43 14:43 14:43 WBC 10.7 RBC 5.56 Hgb 16.4 Hct 49.3 MCV 88.7 MCH 29.5 MCHC 33.3 RDW Std Deviation 43.0 Plt Count 201 MPV 9.6 Immature Gran % (Auto) 0.2 Neut % (Auto) 55.4 Lymph % (Auto) 38.2 [place] % (Auto) 4.3 Eos % (Auto) 1.7 Baso % (Auto) 0.2 Neut # 6.0 Lymph # 4.1 [place] # 0.5 Eos # 0.2 Baso # 0.0 Abs Immat Gran (auto) 0.02 D-Dimer < 150 Turbidity < 20 Sodium 144 Potassium 4.4 Chloride 106 Carbon Dioxide 26 Anion Gap 12 BUN 10.0 Creatinine 0.6 L GFR Calculation 148 BUN/Creatinine Ratio 17 Glucose 136 H Glucometer Hemoglobin A1c Calculated Osmolality 278 Calcium 9.9 Magnesium 2.1 Total Bilirubin 0.60 Icterus Index < 2 AST 21 ALT 34 Alkaline Phosphatase 66 Troponin I < 0.012 Total Protein 8.1 Albumin 4.6 Globulin 3.5 Albumin/Globulin Ratio 1.3 TSH 0.74 Specimen Hemolysis < 15 06/18/17 06/18/17 06/18/17 17:39 18:08 20:34 WBC RBC Hgb Hct MCV MCH MCHC RDW Std Deviation Plt Count MPV Immature Gran % (Auto) Neut % (Auto) Lymph % (Auto) [place] % (Auto) Eos % (Auto) Baso % (Auto) Neut # Lymph # [place] # Eos # Baso # Abs Immat Gran (auto) D-Dimer Turbidity Sodium Potassium Chloride Carbon Dioxide Anion Gap BUN Creatinine GFR Calculation BUN/Creatinine Ratio Glucose Glucometer 60 Hemoglobin A1c 8.0 H Calculated Osmolality Calcium Magnesium 2.1 Total Bilirubin Icterus Index AST ALT Alkaline Phosphatase Troponin I < 0.012 Total Protein Albumin Globulin Albumin/Globulin Ratio TSH Specimen Hemolysis < 15 06/18/17 06/19/17 06/19/17 21:50 02:39 06:10 WBC RBC Hgb Hct MCV MCH MCHC RDW Std Deviation Plt Count MPV Immature Gran % (Auto) Neut % (Auto) Lymph % (Auto) [place] % (Auto) Eos % (Auto) Baso % (Auto) Neut # Lymph # [place] # Eos # Baso # Abs Immat Gran (auto) D-Dimer Turbidity Sodium Potassium Chloride Carbon Dioxide Anion Gap BUN Creatinine GFR Calculation BUN/Creatinine Ratio Glucose Glucometer 246 106 Hemoglobin A1c Calculated Osmolality Calcium Magnesium Total Bilirubin Icterus Index AST ALT Alkaline Phosphatase Troponin I < 0.012 Total Protein Albumin Globulin Albumin/Globulin Ratio TSH Specimen Hemolysis < 15 <Loreta Davis 06/19/17 14:59> - Microbiology None <Loreta Davis 06/19/17 14:59> - Radiology Radiology: 06/18-chest x-ray no acute cardiopulmonary abnormalities <RyanLoreta Tomas 06/19/17 14:59> - Pathology None <Loreta Davis V - 06/19/17 14:59> History of Present Illness HPI: Sloan is a pleasant 41 year old female who has been under the outpatient care of the wound care center for debridement of a right 2nd toe plantar ulcer for the past 1 month. Today he was there having a final evaluation on his wound and he told staff he had been having chest pain all day. At that time he was brought to the emergency room for acute evaluation. Further evaluation including laboratory studies, EKG and chest x-ray were obtained. EKG revealed sinus tachycardia, rate 103. CBC and CMP were found to be unremarkable. Initial troponin was negative. TSH is 0.74, and d-dimer negative. Chest x-ray not reveal any acute cardiopulmonary findings. His chest pain initially was a 6 out of 10 and decreased down to a 2 out of 10 following nitroglycerin and morphine. Patient does have existing comorbidities including diabetes, hypertension, every day smoker. The hospitalist services were contacted and accepted patient for outpatient admission for further observation and evaluation. 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 He reports that he does take Adderall for his ADHD, however, only utilizes it on days of work. He reports he has a long-standing history of chronic insomnia and night terrors. He has had cardiac evaluation in the past. He reports that in the summer 2015. He was hospitalized at [facility] and underwent a stress test and echocardiogram at that time. He was told that it was "okay". No interventions were performed. Chest pain. Today is sharp in nature to the left anterior chest and substernal. It appears to be worse with palpation and is reproducible on examination. Pain was accompanied with mild nausea that has now resolved. Patient has a known history of type II diabetes in his under the outpatient care of the wound Center for a right 2nd toe wound ulcer that has now healed. She reports that his last hemoglobin A1c was 2-3 months ago. At that time it was just over 8. He reports that he is not good about taking mealtime insulin as his food intake during the day varies depending on his dizziness. He does routinely take Levemir 40 units twice a day as well as Invokana for glycemic control. <Loreta Davis V - 06/19/17 14:59> Hospital Course This is a general summary of the patient's hospital course. For more details refer to the complete medical record. <Callie Diamond - 06/19/17 16:51> This is a general summary of the patient's hospital course. For more details refer to the complete medical record. <Loreta Davis V - 06/19/17 14:59> Hospital course: 06/19/2017-I reviewed this chart, the patient history, and the CAPACITY PLANNING MANAGER's/PA's documented findings as above. We discussed and formulated the assessment and plan as above with the additions below.-Dr. Diamond Patient was feeling much better today. Chest pain is resolved. He is eating and drinking well. He talked with Dr. Mead and they are planning for stress test and follow-up next week. The patient is to take an aspirin daily and will have a prescription for nitroglycerin to take when necessary. I discussed with him how and under what circumstances to take nitroglycerin. The patient should call 911 for chest pain unrelieved with nitroglycerin. If he does have to take the nitroglycerin and it relieves his chest pain he should notify Dr. Mead. On exam the patient is alert and oriented and in no acute distress. Chest is clear to auscultation. Cardiovascular reveals a regular rate and rhythm. Abdomen is soft and nontender. Extremities are free of edema. Patient is stable for dismissal to home today. <Callie Diamond - 06/19/17 16:51> 06/18/17- initial admission Chest pain rule out LA Type II diabetes Hypertension GERD Reported history of LA Anxiety ADHD Plan Admit patient to outpatient observation under care of Dr. Diamond for chest pain rule out LA. Will monitor patient on cardiac telemetry, obtain serial troponin 3 to rule out ischemia. Consult placed to Dr. Mead for further cardiac evaluation and recommendations. HEART score= 3 points indicating low risk of adverse cardiac event Have asked nursing staff to obtain old records from [facility]. Patient did have cardiac workup including stress test in the summer of 2015. Morphine available as needed for pain control. Will monitor Accu-Cheks and continue with home insulin, Levemir 40 units a day as well as NovoLog with meals and oral Invokana. Encourage tobacco cessation. Medications reviewed and ordered SCDs to bilateral lower extremity for DVT prophylaxis Discuss further orders and plan of care with attending, Dr. Diamond. At time of discharge medical care will return to primary care provider in [place], Dr. Yulissa Reilly 06/18/17 22:04 06/19/17-discharge Overnight patient was observed both on telemetry as well as serial cardiac enzymes which remain negative. This morning, chest pain has resolved. Patient does admit to having some mild anxiety, however, overall feels well. Appreciate cardiac consultation by Dr. Mead who recommends further nuclear stress test in the outpatient setting. Will discharge patient on routine home medications, however, recommend that he discontinue use of Adderall as this may contribute to chest pain. Will also add aspirin 81 milligrams daily and utilization of nitroglycerin sublingually as needed for chest pain. Dr. Mead has recommended follow-up with patient next week and will also undergo nuclear stress test at that time. <Loreta Davis V - 06/19/17 14:59> Time spent with patient: greater than 35 minutes <Loreta Davis V - 06/19/17 14:59> Discharge Plan - Med Rec/Dispo Referrals/Follow Up: Ken Mead MD [Physician] - (Follow up for nuclear stress test next week and follow up with Dr Mead as instructed. ) <Callie Diamond - 06/19/17 16:51> [place] Instructions: <Callie Diamond - 06/19/17 16:51> Prescriptions: New Aspirin Chewable [ASA] 81 mg PO DAILY #30 tab.chew Nitroglycerin 0.4 mg SL Q5MIN3 #30 tab.subl Acetaminophen [Tylenol] 500 mg PO Q4H tablet Continue Cyclobenzaprine [Flexeril] 5 mg PO PRN Insulin Aspart [Novolog Flexpen] 10 - 20 unit SQ TIDWM Venlafaxine HCl [Venlafaxine HCl ER] 75 mg PO DAILY Venlafaxine HCl [Venlafaxine HCl ER] 150 mg PO DAILY Amlodipine [Norvasc] 10 mg PO DAILY Atorvastatin Calcium 20 mg PO HS Insulin Detemir [Levemir Flextouch] 40 unit SQ BID LORazepam [Ativan] 0.5 mg PO BID Canagliflozin [Invokana] 300 mg PO DAILY Benzalkonium Chloride [Revitaderm] 1 applic TOP PRN Discontinued Dextroamphetamine/Amphetamine [Adderall Xr 30 mg Capsule] 30 mg PO DAILY < Callie Diamond - 06/19/17 16:51> Discharge Instructions/Outpatient Orders: Final Provider Discharge Instructions Location: Determined By Patient <Callie Diamond - 06/19/17 16:51> - Disposition 01 Discharged Home, Self-Care <Callie Diamond 06/19/17 16:51>
--- NOTE | 2017-06-19 17:26 | Cardiology Progress Note ---
Subjective Interval history: Mr. Akers had a restful night he denies a further chest pain has been up to the bathroom he is extremely anxious to go home he has so much work to do. I tried to obtain additional history he started getting agitated he kept asking about his cardiac enzyme levels she is going to be discharged. He indicates he prefers to do a workup as an outpatient. He tells me he his lawn for 45 minutes about 2 weeks ago without any chest pain. He said he's been under a lot of stress. Exam Vital signs: Temperature 98.4 F 06/19/17 11:38 Pulse Rate 90 06/19/17 11:38 Respiratory Rate 16 06/19/17 11:38 Blood Pressure 116/70 06/19/17 11:38 Pulse Oximetry 96 06/19/17 11:38 - Constitutional no acute distress, obese - Routine HEENT Exam Head: Present: normocephalic, atraumatic Eye: Present: EOMI, PERRL. Absent: proptosis ENT: Present: mucous membranes moist - Routine Neck Exam Present: supple, normal carotid upstroke. Absent: JVD, carotid bruit, lymphadenopathy, thyromegaly - Routine Respiratory Exam Present: CTA bilaterally - Routine Cardiovascular Exam Present: RRR, S1, S2, no murmur, S4. Absent: bradycardia, tachycardia - Routine Abdominal Exam Present: soft, normoactive bowel sounds, non distended, non tender. Absent: organomegaly - Routine Extremities Exam Present: no edema, non tender, full ROM, pulses intact, normal capillary refill. Absent: cyanosis, clubbing, edema - Routine Skin Exam Present: intact, dry. Absent: cyanosis, erythema - Routine Neurological Exam Present: alert, oriented X3, CN II-XII intact, hearing grossly intact, normal speech. Absent: motor deficit - Routine Psychiatric Exam Present: anxious, agitated Progress Note-A&P (1) Chest pain Status: Resolved - Time Spent With Patient Total time spent is greater than 50% in coordination of care (as documented) at patient's floor/unit and/or counseling patient: greater than 35 minutes - Attestation Attestation Narrative: Serial troponins came back negative EKG sinus rhythm nonspecific T-wave abnormality in aVL borderline flattening of T-wave in 1. No acute ST depression or elevation telemetry shows normal sinus rhythm Sepsis Assessment - Evaluation Sepsis screening result: No Definite Risk Hospital Course Summary Disclaimer: The visit summary below is not to be considered part of the above Progress Note. Hospital Course: 06/18/17- initial admission Chest pain rule out MS Type II diabetes Hypertension GERD Reported history of MS Anxiety ADHD CP atypical and reproducible appears to be chest wall pain. DM 2 poorly controlled A1c 8 SMOKER HTN DYSLIPIDEMIA APPEARS STABLE CONCUR W RX AND R/O MS DISCUSSING FURTHER W/U. Exercise stress nuclear scan versus heart catheter ,considering his risk factors. I explained the plan to the patient we will keep him nothing by mouth after breakfast for cardiac testing tomorrow afternoon. Going to hold his morning insulin. Obtain EKG in the morning 2 serial troponin Continue aspirin and statin Beta blockers may exacerbate his depression especially this is really not feeling well. Will await substantiating the diagnosis of his chest pain . THANK YOU 06/18/17 22:11 06/19/17 17:17 06/19/17 17:19 06/19/17 17:21 06/19/17 17:32 Discussed with the patient the role of exercise stress nuclear scan versus considering heart catheterization due to his risk factors. With the atypical nature of his chest pain not sure I have enough indication to put him through any invasive procedure, at least not yet. Patient certainly didn't seem excited about having a heart catheter. We agreed on proceeding with exercise stress nuclear scan. The patient around 1330 S soon as finished my clinic which went on on all morning. I spoke to nuclear medicine and they will be able to get the radioactive isotope from [place] by 3 stress time by 4. I then received a note from the nurse giving the patient wants to get out of the hospital and do the workup as an outpatient. I communicated with Jessica guarding plan of care aspirin statin and when necessary nitroglycerin. He seems quite agitated has history of depression and a feeling overwhelmed and really I wasn't able to engage him in a conversation today, so not really to discuss or start beta blockers at this time. I asked him whether he exercised he answered and that he put in and 15 hours daily and the busy practice and he was kind of short, not receptive to recommendations overall healthier lifestyle, although I did tell him in general about somE ideas at tackled about healthier lifestyle but again he didn't appear receptive. I asked his nurse to make sure she ambulates him before he be discharged home shortly remains chest pain-free. On my exam his left circumflex and left chest wall tenderness was still reproducible, it seems milder. Time spent in [id number] encounter discussion with multiple providers and coordination of care with the my office and the recommendation was in excess of 45 minutes. 06/19/17 17:39 Risk factor control with PCP.
== END 2017-06-19 15:05 | disposition home or self-care (01) ==
LOC: ED 14:29 → SRG 14:29
PROVIDERS: ADMIT Internal Medicine; ATTEND Internal Medicine